=== PATIENT | male | born 1970 | race American Indian/Alaskan Native ===

== ENCOUNTER 2017-05-17 15:46 | Emergency (ER) | payer MEDICARE ==
[2017-05-17 17:35] LABS: Basophils % (Auto) 0.7 % (0.0-1.8); Eosinophils # (Auto) 0.1 K/mm3 (0.0-0.4); Eosinophils % (Auto) 1.1 % (0.0-4.3); Hematocrit 38.3 % (35.5-45.6); Lymphocytes # (Auto) 1.8 K/mm3 (1.2-5.4); Mean Corpuscular HGB Conc 34 % (32-34); Mean Corpuscular Hemoglobin 33 pg (28-32); Mean Corpuscular Volume 98 fl (84-94); Monocytes # (Auto) 0.4 K/mm3 (0.0-0.8); Monocytes % (Auto) 8.1 % (0.0-7.3); Platelet Count 131 K/mm3 (140-440); Red Cell Distribution Width 16.5 % (13.2-15.2)
[2017-05-17] MEDS ORDERED: KEPPRA 1,000 MG/NS 0.75% 100ML 1,000 MG/100 ML BAG IV ONE (17:47)
[2017-05-17 17:50] LABS: BUN/Creatinine Ratio 9; Blood Urea Nitrogen 7 mg/dL (9-20); Calcium 8.4 mg/dL (8.4-10.2); Hemolysis Index 4
--- NOTE | 2017-05-17 17:52 | Emergency Department Report ---
ED General Adult HPI - General Chief complaint: Seizure Stated complaint: POSS SEIZURES Time Seen by Provider: 05/17/17 17:31 Source: patient, EMS (ems notes not available at time of chart dictation), RN notes reviewed Mode of arrival: Stretcher Limitations: No Limitations - History of Present Illness Initial comments: Primary care DrCesar: Marcello Past medical history: Seizure, hypertension This is a 46-year-old male. He is previously known to this provider. Brought to the hospital by EMS for possible seizure. Patient reports having had seizures every day for the past 3 years. He reports compliance with his antiepileptic drug medication. He indicates that he has not missed any of his doses. Patient may have had recent nausea and vomiting he is not sure. The patient indicates central chest pain for months. The pain does not radiate anywhere. There is no shortness of breath, diaphoresis. There is no posterior leg pain or leg swelling, there are no DVT or pulmonary embolus risk factors. The patient indicates chronic anterior thigh pain for months. He cannot indicate exacerbating or relieving factors. He is not homicidal or suicidal. He denies urinary symptoms. -: Gradual, Sudden, week(s), month(s) Location: back, left, right, upper extremity, lower extremity Radiation: non-radiation Quality: other (per hpi) Consistency: other (per hpi) Improves with: other (per hpi) Worsens with: other (per hpi) Associated Symptoms: chest pain, headaches, nausea/vomiting, seizure, other ( neck pain). denies: confusion, cough, diaphoresis, fever/chills, loss of appetite, malaise, rash, shortness of breath, syncope, weakness - Related Data Previous Rx's Medication Instructions Recorded Last Taken Type Aspirin [Adult Low Dose Aspirin EC] 81 mg PO QDAY #30 tablet. 05/17/17 Unknown Rx levETIRAcetam [Keppra TAB] 1,000 mg PO BID #60 tab 05/17/17 Unknown Rx Allergies Allergy/AdvReac Type Severity Reaction Status Date / Time No Known Allergies Allergy Unverified 05/17/17 17:19 ED Review of Systems ROS: Stated complaint: POSS SEIZURES Other details as noted in HPI Comment: All other systems reviewed and negative ED Past Medical Hx - Past Medical History Hx Hypertension: Yes Hx Diabetes: Yes Hx Seizures: Yes - Social History Smoking Status: Former Smoker Substance Use Type: None - Medications Home Medications: Home Medications Medication Instructions Recorded Confirmed Last Taken Type Aspirin [Adult Low Dose Aspirin EC] 81 mg PO QDAY #30 tablet. 05/17/17 Unknown Rx levETIRAcetam [Keppra TAB] 1,000 mg PO BID #60 tab 05/17/17 Unknown Rx ED Physical Exam - General Limitations: No Limitations General appearance: alert, anxious, obese - Head Head exam: Present: atraumatic, normocephalic - Eye Eye exam: Present: normal appearance, EOMI. Absent: nystagmus - ENT ENT exam: Present: normal exam, normal orophraynx, mucous membranes moist, normal external ear exam - Neck Neck exam: Present: normal inspection, full ROM. Absent: tenderness, meningismus - Respiratory Respiratory exam: Present: normal lung sounds bilaterally. Absent: respiratory distress - Cardiovascular Cardiovascular Exam: Present: regular rate, normal rhythm, normal heart sounds. Absent: systolic murmur, diastolic murmur, rubs, gallop - GI/Abdominal GI/Abdominal exam: Present: soft, normal bowel sounds. Absent: distended, tenderness, guarding, rebound, rigid, pulsatile mass - Rectal Rectal exam: Present: deferred - Extremities Exam Extremities exam: Present: normal inspection, full ROM, normal capillary refill , other (the compartments are soft. There is no palpable cord. There is a negative Homans sign. 2+ pulses noted in the bilateral upper and lower extremities). Absent: pedal edema, joint swelling, calf tenderness - Back Exam Back exam: Present: normal inspection, full ROM. Absent: tenderness, CVA tenderness (R), paraspinal tenderness, vertebral tenderness - Neurological Exam Neurological exam: Present: alert, oriented X3, CN II-XII intact, normal gait, other (Extraocular movements intact. Tongue midline. No facial droop. Facial sensation intact to light touch in the V1, V2, V3 distribution bilaterally. 5 and 5 strength in 4 extremities.. Sensation is intact to light touch in 4 extremities.). Absent: motor sensory deficit - Psychiatric Psychiatric exam: Present: normal affect, normal mood - Skin Skin exam: Present: warm, dry, intact, normal color. Absent: rash ED Course Vital Signs 05/17/17 05/17/17 05/17/17 17:02 17:40 17:46 Temperature 97.4 F L Pulse Rate 90 Respiratory 20 Rate Blood Pressure 156/80 O2 Sat by Pulse 100 99 100 Oximetry 05/17/17 05/17/17 05/17/17 18:00 18:16 18:30 Temperature Pulse Rate 95 H 84 102 H Respiratory 20 20 23 Rate Blood Pressure 148/82 149/88 O2 Sat by Pulse 100 99 99 Oximetry 05/17/17 05/17/17 18:46 18:59 Temperature Pulse Rate 84 Respiratory 13 20 Rate Blood Pressure O2 Sat by Pulse 99 100 Oximetry - Reevaluation(s) Reevaluation #1: 05/17/17 20:[address] Saeed Greenberg to follow up on ct head/neck, ua would d/c if negative ED Medical Decision Making - Lab Data Result diagrams: 05/17/17 17:23 05/17/17 17:23 Vital Signs 05/17/17 05/17/17 05/17/17 17:02 17:40 17:46 Temperature 97.4 F L Pulse Rate 90 Respiratory 20 Rate Blood Pressure 156/80 O2 Sat by Pulse 100 99 100 Oximetry 05/17/17 05/17/17 05/17/17 18:00 18:16 18:30 Temperature Pulse Rate 95 H 84 102 H Respiratory 20 20 23 Rate Blood Pressure 148/82 149/88 O2 Sat by Pulse 100 99 99 Oximetry 05/17/17 05/17/17 18:46 18:59 Temperature Pulse Rate 84 Respiratory 13 20 Rate Blood Pressure O2 Sat by Pulse 99 100 Oximetry Lab Results 05/17/17 05/17/17 05/17/17 Range/Units 17:23 17:23 17:58 WBC 5.4 (4.5-11.0) K/mm3 RBC 3.90 (3.65-5.03) M/mm3 Hgb 13.0 (11.8-15.2) gm/dl Hct 38.3 (35.5-45.6) % MCV 98 H (84-94) fl MCH 33 H (28-32) pg MCHC 34 (32-34) % RDW 16.5 H (13.2-15.2) % Plt Count 131 L (140-440) K/mm3 Lymph % (Auto) 33.0 (13.4-35.0) % [place] % (Auto) 8.1 H (0.0-7.3) % Eos % (Auto) 1.1 (0.0-4.3) % Baso % (Auto) 0.7 (0.0-1.8) % Lymph # 1.8 (1.2-5.4) K/mm3 [place] # 0.4 (0.0-0.8) K/mm3 Eos # 0.1 (0.0-0.4) K/mm3 Baso # 0.0 (0.0-0.1) K/mm3 Seg Neutrophils % 57.1 (40.0-70.0) % Seg Neutrophils # 3.1 (1.8-7.7) K/mm3 Sodium 139 (137-145) mmol/L Potassium 3.2 L (3.6-5.0) mmol/L Chloride 101.2 (98-107) mmol/L Carbon Dioxide 29 (22-30) mmol/L Anion Gap 12 mmol/L BUN 7 L (9-20) mg/dL Creatinine 0.8 (0.8-1.5) mg/dL Estimated GFR > 60 ml/min BUN/Creatinine Ratio 9 % Glucose 106 H (75-100) mg/dL Calcium 8.4 (8.4-10.2) mg/dL Total Creatine Kinase 518 H (55-170) units/L Troponin T < 0.010 (0.00-0.029) ng/mL 05/17/17 Range/Units 17:58 WBC (4.5-11.0) K/mm3 RBC (3.65-5.03) M/mm3 Hgb (11.8-15.2) gm/dl Hct (35.5-45.6) % MCV (84-94) fl MCH (28-32) pg MCHC (32-34) % RDW (13.2-15.2) % Plt Count (140-440) K/mm3 Lymph % (Auto) (13.4-35.0) % [place] % (Auto) (0.0-7.3) % Eos % (Auto) (0.0-4.3) % Baso % (Auto) (0.0-1.8) % Lymph # (1.2-5.4) K/mm3 [place] # (0.0-0.8) K/mm3 Eos # (0.0-0.4) K/mm3 Baso # (0.0-0.1) K/mm3 Seg Neutrophils % (40.0-70.0) % Seg Neutrophils # (1.8-7.7) K/mm3 Sodium (137-145) mmol/L Potassium (3.6-5.0) mmol/L Chloride (98-107) mmol/L Carbon Dioxide (22-30) mmol/L Anion Gap mmol/L BUN (9-20) mg/dL Creatinine (0.8-1.5) mg/dL Estimated GFR ml/min BUN/Creatinine Ratio % Glucose (75-100) mg/dL Calcium (8.4-10.2) mg/dL Total Creatine Kinase (55-170) units/L Troponin T < 0.010 (0.00-0.029) ng/mL - EKG Data -: EKG Interpreted by In EKG shows normal: sinus rhythm Rate: normal - EKG Data When compared to previous EKG there are: previous EKG unavailable 05/17/17 19:37 EKG #1 demonstrates normal sinus, 83 bpm, normal intervals, normal axis, not morphologically consistent with ST elevation myocardial infarction. Poor R wave progression is noted in V2. Repeat EKG is unchanged. Persistent abnormality in V2 is noted. - Radiology Data Radiology results: report reviewed, image reviewed X-ray of the chest is negative for acute disease, noncontrast CT scan of the brain and cervical spine are pending. - Medical Decision Making Differential diagnosis, including but not limited to: Seizure, breakthrough seizure, electrolyte derangement, atypical chest pain, GERD, pneumonia, hiatal hernia, pseudoseizure Assessment and plan: 46-year-old male with a primary complaint of seizure. He is afebrile with reassuring vital signs, walks with a steady gait, is clinically sober and has a GCS of 15, with an NIH score of 0. He complains of headache and neck pain" seizures every day." Patient is loaded with 1 g of Keppra. He is found to be somewhat hypokalemic and this will be repleted. Chest pain atypical, and present for months. Troponin negative 2, EKG unchanged 2, low risk by IRASEMA score, low risk by heart score, no pulmonary embolus or DVT risk factors, low risk by well's criteria, perc negative His compartments are soft, he walks with a steady gait. Patient is somewhat of a poor historian, however objectively speaking that her son appeared to be an emergent condition at this time, patient can continue his outpatient antiepileptic drug medication, follow up with outpatient neurology, and outpatient cardiology, he is at low risk for major adverse cardiac event. Critical care attestation.: If time is entered above; I have spent that time in minutes in the direct care of this critically ill patient, excluding procedure time. ED Disposition Clinical Impression: History of seizure, Chest pain Is pt being admited?: No Does the pt Need Aspirin: No Condition: Good Instructions: Chest Pain (ED) Additional Instructions: Do not drive or operate motor vehicles for the next 6 months. Take the seizure medication as directed. Follow up with a primary care doctor or neurology specialist within the next 2 weeks. Take the aspirin medication as directed, and follow-up with a primary care doctor or dirt supervisor for your chest pain within the next week. Return to the ER right away with new pain, worsened pain , migration of pain, weakness, numbness, confusion, recurrent seizure/convulsion , projectile vomiting, inability to tolerate liquid feeds. Prescriptions: Aspirin [Adult Low Dose Aspirin EC] 81 mg PO QDAY #30 tablet. levETIRAcetam [Keppra TAB] 1,000 mg PO BID #60 tab Referrals: ARMEN LEGGETT MD [Staff Physician] - 3-5 Days GIAN HERRON MD [Referring] - 3-5 Days [facility] [Provider Group] - 3-5 Days [facility] [Provider Group] - 3-5 Days
--- NOTE | 2017-05-17 19:32 | XRay Report ---
FINAL REPORT EXAM: XR CHEST 1V AP HISTORY: chest pain TECHNIQUE: upright single view chest PRIORS: None. FINDINGS: Cardiac and mediastinal contours are unremarkable. No focal pulmonary infiltrate is identified. No pleural fluid collection seen. Pulmonary vasculature is unremarkable. IMPRESSION: Negative single-view chest
[2017-05-17] MEDS ORDERED: K-DUR PO ONE (19:36)
[2017-05-17] MEDS ORDERED: MAG-OX PO STA (19:40)
[2017-05-17 20:22] LABS: Bilirubin,Urine NEG (Negative); Blood,Urine NEG (Negative); Color,Urine Straw (Yellow); Mucus,Urine FEW /HPF; Protein,Urine <15 mg/dL mg/dL (Negative); Urobilinogen,Urine < 2.0 mg/dL (<2.0)
--- NOTE | 2017-05-17 20:25 | Cat Scan Report ---
FINAL REPORT EXAM: CT HEAD/BRAIN WO CON HISTORY: sz, head and neck pain TECHNIQUE: CT head without contrast PRIORS: None. FINDINGS: No acute intra-axial or extra-axial hemorrhage is identified. There is no evidence of midline shift or mass effect. The ventricles and sulci are within normal limits. Moore-white matter differentiation is intact. No acute parenchymal abnormalities seen. Bony calvarium is grossly intact. Visualized portions of the mastoids and paranasal sinuses are unremarkable. IMPRESSION: Negative CT head
--- NOTE | 2017-05-17 20:27 | Cat Scan Report ---
FINAL REPORT EXAM: CT CERVICAL SPINE WO CON HISTORY: sz, head and neck pain TECHNIQUE: CT cervical spine with reconstructions PRIORS: None. FINDINGS: Vertebral bodies demonstrate normal height and alignment. The disk spaces are within normal limits. The facet joints demonstrate normal alignment. The spinous processes are intact. Craniocervical junction is unremarkable. C1 and C2 are intact. IMPRESSION: Negative CT cervical spine. No acute abnormality seen.
[2017-05-17 20:28] LABS: Amphetamine Screen,Urine PRESUMPTIVE NEGATIVE; Benzodiazepines Screen,Urine PRESUMPTIVE NEGATIVE; Cannabinoid Screen,Urine PRESUMPTIVE NEGATIVE; Cocaine Screen,Urine PRESUMPTIVE NEGATIVE; Methadone Screen,Urine PRESUMPTIVE NEGATIVE; Opiate Screen,Urine PRESUMPTIVE NEGATIVE
[2017-05-17 20:46] VITALS: BP 107/77
== END 2017-05-17 22:45 | disposition home or self-care (01) ==
LOC: ED 15:46
DX: R07.89 Other chest pain (principal); R51 Headache; I10 Essential (primary) hypertension; E11.9 Type 2 diabetes mellitus without complications; Z87.891 Personal history of nicotine dependence
CPT/HCPCS: 36415; 70450; 71045; 72125; 80048; 80307; 81001; 82550; 84484; 85025; 93005; 93010; 96374; 99285; J1953

== ENCOUNTER 2017-05-18 10:37 | Emergency (ER) | payer MEDICARE ==
[2017-05-18] MEDS ORDERED: KEPPRA 1,000 MG/NS 0.75% 100ML 1,000 MG/100 ML BAG IV ONE (13:31)
--- NOTE | 2017-05-18 13:35 | Emergency Department Report ---
Blank Doc - Documentation Documentation: Patient is a 46-year-old black male who is presenting status post seizure. Patient states he had 3 seizures in the last 24 hours. Patient states he is still been taking his Her although he is running out. Patient denies any trauma fever neck stiffness headache at this time. Patient removed the treatment area to be loaded with Keppra
[2017-05-18 14:02] LABS: Basophils # (Auto) 0.1 K/mm3 (0.0-0.1); Basophils % (Auto) 0.7 % (0.0-1.8); Eosinophils # (Auto) 0.1 K/mm3 (0.0-0.4); Eosinophils % (Auto) 1.5 % (0.0-4.3); Hematocrit 41.7 % (35.5-45.6); Hemoglobin 13.9 gm/dl (11.8-15.2); Lymphocytes # (Auto) 2.7 K/mm3 (1.2-5.4); Lymphocytes % (Auto) 33.3 % (13.4-35.0); Mean Corpuscular HGB Conc 33 % (32-34); Mean Corpuscular Hemoglobin 33 pg (28-32); Mean Corpuscular Volume 99 fl (84-94); Monocytes # (Auto) 0.7 K/mm3 (0.0-0.8); Monocytes % (Auto) 8.2 % (0.0-7.3); Platelet Count 164 K/mm3 (140-440); Red Cell Distribution Width 16.7 % (13.2-15.2)
[2017-05-18 14:22] LABS: BUN/Creatinine Ratio 10; Blood Urea Nitrogen 9 mg/dL (9-20); Calcium 9.1 mg/dL (8.4-10.2); Hemolysis Index 74
[2017-05-18 15:24] VITALS: BP 160/95
[2017-05-18] MEDS ORDERED: TORADOL IV ONE (16:04)
--- NOTE | 2017-05-18 16:15 | Emergency Department Report ---
ED Seizure HPI - General Chief Complaint: Weakness Stated Complaint: SYNCOPE Time Seen by Provider: 05/18/17 13:21 Source: patient Mode of arrival: Wheelchair Limitations: No Limitations - History of Present Illness Initial Comments: 46-year-old male the past medical history seizures, diabetes, and hypertension presents to the hospital complaints of generalized weakness, body pain, and seizure. Patient was seen here yesterday for complaints similar complaint. She received a negative CT head, C-spine, and chest x-ray. No signs of rhabdomyolysis patient had mild hypokalemia and was treated with by mouth potassium, po mag, and IV Keppra 1 g. Patient states he had a seizure despite medication compliance. Patient was discharged last night but fell asleep in the lobby and missed his ride. Patient went to check back in stating he feels weak all over and then had another seizure once and the ACC area. Patient was then subsequently transferred to the acute side of the ED and Keppra 1 g was initiated. Patient continues complain of generalized bodyaches and generalized weakness. Neurologsit: none - Related Data Previous Rx's Medication Instructions Recorded Last Taken Type Aspirin [Adult Low Dose Aspirin EC] 81 mg PO QDAY #30 tablet. 05/17/17 Unknown Rx levETIRAcetam [Keppra TAB] 1,000 mg PO BID #60 tab 05/17/17 Unknown Rx Allergies Allergy/AdvReac Type Severity Reaction Status Date / Time No Known Allergies Allergy Unverified 05/17/17 17:19 ED Review of Systems ROS: Stated complaint: SYNCOPE Other details as noted in HPI Comment: All other systems reviewed and negative Other: Constitutional: No fevers chills Eyes: No eye pain visual changes ENT: No ear pain or throat pain Neck: Denies pain Respiratory: Denies cough wheezing shortness of breath Cardiovascular: Denies chest pain, palpitations GI: Denies abdominal pain. mild intermittent diarrhea reported : Denies dysuria Musculoskeletal: Denies back pain, joint swelling Skin: Denies rash, lesions, erythema Neurologic: Denies headache, numbness, weakness Psychiatric: Denies suicidal ideation, hallucinations ED Past Medical Hx - Past Medical History Previous Medical History?: Yes Hx Hypertension: Yes Hx Diabetes: Yes Hx Seizures: Yes - Social History Smoking Status: Never Smoker Substance Use Type: None - Medications Home Medications: Home Medications Medication Instructions Recorded Confirmed Last Taken Type Aspirin [Adult Low Dose Aspirin EC] 81 mg PO QDAY #30 tablet. 05/17/17 Unknown Rx levETIRAcetam [Keppra TAB] 1,000 mg PO BID #60 tab 05/17/17 Unknown Rx ED Physical Exam - General Limitations: No Limitations - Other Other exam information: General: No limitations, patient is alert in no acute distress Head exam: Atraumatic, normocephalic Eyes exam: Normal appearance, pupils equal reactive to light, extraocular movements intact ENT: Moist mucous membrane, right lateral tongue superficial abrasion Neck exam: Normal inspection, full range of motion, no meningismus nontender Respiratory exam: Clear to auscultation bilateral, no wheezes, rales, crackles Cardiovascular: Normal rate and rhythm, normal heart sounds Abdomen: Soft, nondistended, and nontender, with normal bowel sounds, no rebound, or guarding Extremity: Full range of motion normal inspection no deformity Back: Normal Inspection, full range of motion, no tenderness Neurologic: Alert, oriented x3, cranial nerves intact, no motor or sensory deficit Psychiatric: normal affect, normal mood Skin: Warm, dry, intact ED Course Vital Signs 05/18/17 05/18/17 05/18/17 10:42 13:49 14:00 Temperature 98.3 F Pulse Rate 72 Respiratory 16 Rate Blood Pressure 157/82 196/103 145/100 O2 Sat by Pulse 98 98 Oximetry 05/18/17 05/18/17 05/18/17 14:15 14:30 14:45 Temperature Pulse Rate 78 79 80 Respiratory 14 17 13 Rate Blood Pressure 160/92 162/92 144/93 O2 Sat by Pulse 97 95 96 Oximetry 05/18/17 05/18/17 15:01 15:15 Temperature Pulse Rate 86 83 Respiratory 11 L 12 Rate Blood Pressure 156/96 160/95 O2 Sat by Pulse 95 96 Oximetry ED Medical Decision Making - Lab Data Result diagrams: 05/18/17 13:48 05/18/17 13:48 Lab Results 05/18/17 05/18/17 05/18/17 Range/Units 13:48 13:48 13:48 WBC 8.1 (4.5-11.0) K/mm3 RBC 4.20 (3.65-5.03) M/mm3 Hgb 13.9 (11.8-15.2) gm/dl Hct 41.7 (35.5-45.6) % MCV 99 H (84-94) fl MCH 33 H (28-32) pg MCHC 33 (32-34) % RDW 16.7 H (13.2-15.2) % Plt Count 164 (140-440) K/mm3 Lymph % (Auto) 33.3 (13.4-35.0) % [place] % (Auto) 8.2 H (0.0-7.3) % Eos % (Auto) 1.5 (0.0-4.3) % Baso % (Auto) 0.7 (0.0-1.8) % Lymph # 2.7 (1.2-5.4) K/mm3 [place] # 0.7 (0.0-0.8) K/mm3 Eos # 0.1 (0.0-0.4) K/mm3 Baso # 0.1 (0.0-0.1) K/mm3 Seg Neutrophils % 56.3 (40.0-70.0) % Seg Neutrophils # 4.5 (1.8-7.7) K/mm3 Sodium 138 (137-145) mmol/L Potassium 3.8 (3.6-5.0) mmol/L Chloride 97.8 L (98-107) mmol/L Carbon Dioxide 27 (22-30) mmol/L Anion Gap 17 mmol/L BUN 9 (9-20) mg/dL Creatinine 0.9 (0.8-1.5) mg/dL Estimated GFR > 60 ml/min BUN/Creatinine Ratio 10 % Glucose 94 (75-100) mg/dL Calcium 9.1 (8.4-10.2) mg/dL Magnesium 1.90 (1.7-2.3) mg/dL - Medical Decision Making Patient likely had a repeat seizure in the ED due to lack of seizure medication. That dose of Keppra was in the ED yesterday evening and patient did not have any seizure medication this morning. Patient received Keppra and no further seizure activity. Hypokalemia has improved He continues complain of generalized body aches but no acute physical or lab abnormality identified. Vitals stable. Patient be discharged to continue the Keppra that was prescribed on his visit last night - Differential Diagnosis break through seizure, medication noncompliance, initially abnormality Critical Care Time: No Critical care attestation.: If time is entered above; I have spent that time in minutes in the direct care of this critically ill patient, excluding procedure time. ED Disposition Clinical Impression: Seizure Disposition: DC-01 TO HOME OR SELFCARE Is pt being admited?: No Does the pt Need Aspirin: No Condition: Stable Instructions: Epilepsy (ED) Additional Instructions: Follow-up and either neurologist provided with a neurologist of your choice. Take the medication as prescribed. Referrals: TRICIA MORENO MD [Staff Physician] - 3-5 Days ARMEN LEGGETT MD [Staff Physician] - 3-5 Days Time of Disposition: 16:33
== END 2017-05-18 17:18 | disposition home or self-care (01) ==
LOC: ED 10:37
DX: R56.9 Unspecified convulsions (principal); R53.1 Weakness; M79.1 Myalgia; I10 Essential (primary) hypertension; E11.9 Type 2 diabetes mellitus without complications
CPT/HCPCS: 36415; 80048; 83735; 85025; 96374; 96375; 99283; J1885; J1953

== ENCOUNTER 2017-06-15 15:58 | Emergency (ER) | payer MEDICARE ==
[2017-06-15 16:10] VITALS: BP 156/93
[2017-06-15] MEDS ORDERED: KEPPRA PO ONE (19:28)
[2017-06-15] MEDS ORDERED: ANTIVERT PO ONE (19:28)
--- NOTE | 2017-06-15 19:31 | Emergency Department Report ---
ED General Adult HPI - General Chief complaint: Dizziness Stated complaint: BG/BP/SEZUIRES Time Seen by Provider: 06/15/17 19:27 Source: patient Mode of arrival: Ambulatory Limitations: No Limitations - History of Present Illness Initial comments: Patient is a 46-year-old black male who is presenting with "seizure". Patient states that he had 3 episodes today that he is considering a seizure. Last wet his symptoms aren't says he gets really dizzy and sometimes his blood in his mouth. Patient was asked open his mouth it's has not bitten his tongue he states that his teeth are loose. Patient is a poor historian. Patient has a prescription from last month was written here for Her however he states he is not taking anything for seizures not seen a neurologist or formally diagnosed with seizures. Patient also states that he feels like the blood is rushing to his head and his blood pressures extremely high. Patient states he's never prescribed any blood pressure medicines either. Patient denies any nausea vomiting, headache and fevers chills abdominal pain at this time. - Related Data Previous Rx's Medication Instructions Recorded Last Taken Type Aspirin [Adult Low Dose Aspirin EC] 81 mg PO QDAY #30 tablet. 05/17/17 Unknown Rx Amlodipine Besylate [Norvasc] 5 mg PO DAILY #30 tablet 06/15/17 Unknown Rx levETIRAcetam [Keppra TAB] 500 mg PO BID #60 tab 06/15/17 Unknown Rx Allergies Allergy/AdvReac Type Severity Reaction Status Date / Time No Known Allergies Allergy Verified 06/15/17 16:04 ED Review of Systems ROS: Stated complaint: BG/BP/SEZUIRES Other details as noted in HPI Comment: All other systems reviewed and negative ED Past Medical Hx - Past Medical History Hx Hypertension: Yes Hx Diabetes: Yes Hx Seizures: Yes - Social History Smoking Status: Never Smoker - Medications Home Medications: Home Medications Medication Instructions Recorded Confirmed Last Taken Type Aspirin [Adult Low Dose Aspirin EC] 81 mg PO QDAY #30 tablet. 05/17/17 Unknown Rx Amlodipine Besylate [Norvasc] 5 mg PO DAILY #30 tablet 06/15/17 Unknown Rx levETIRAcetam [Keppra TAB] 500 mg PO BID #60 tab 06/15/17 Unknown Rx ED Physical Exam - General Limitations: No Limitations General appearance: alert, in no apparent distress - Head Head exam: Present: atraumatic, normocephalic - Eye Eye exam: Present: normal appearance - ENT ENT exam: Present: mucous membranes moist - Neck Neck exam: Present: normal inspection - Respiratory Respiratory exam: Present: normal lung sounds bilaterally. Absent: respiratory distress - Cardiovascular Cardiovascular Exam: Present: regular rate, normal rhythm. Absent: systolic murmur, diastolic murmur, rubs, gallop - GI/Abdominal GI/Abdominal exam: Present: soft, normal bowel sounds - Rectal Rectal exam: Present: deferred - Extremities Exam Extremities exam: Present: normal inspection - Back Exam Back exam: Present: normal inspection - Neurological Exam Neurological exam: Present: alert, oriented X3 - Psychiatric Psychiatric exam: Present: normal affect, normal mood - Skin Skin exam: Present: warm, dry, intact, normal color. Absent: rash ED Course Vital Signs 06/15/17 16:04 Temperature 97.8 F Pulse Rate 84 Respiratory 18 Rate Blood Pressure 156/93 O2 Sat by Pulse 98 Oximetry ED Medical Decision Making - Lab Data Result diagrams: 06/15/17 19:45 06/15/17 19:45 - Medical Decision Making Patient is a 46-year-old black male presented with possible seizures. No seizure was witnessed here but he has Had a Prescription past for Her Which Ascending Aorta. Patient Is a Poor Historian However Patient Was Loaded with a Gram Will Be Discharged Home with Prescription with Follow with Neuro. Patient Also Has a Slightly Elevated Blood Pressure and Restarted on Blood Pressure Medicines As Well. Critical care attestation.: If time is entered above; I have spent that time in minutes in the direct care of this critically ill patient, excluding procedure time. ED Disposition Clinical Impression: Seizure, Hypertension Disposition: DC-01 TO HOME OR SELFCARE Is pt being admited?: No Does the pt Need Aspirin: No Condition: Stable Instructions: Hypertension (ED) Prescriptions: Amlodipine Besylate [Norvasc] 5 mg PO DAILY #30 tablet levETIRAcetam [Keppra TAB] 500 mg PO BID #60 tab Referrals: BERTHA KOROMA MD [Primary Care Provider] - 3-5 Days JASMYNE CUEVA MD [Referring] - 3-5 Days
[2017-06-15 20:06] LABS: Mean Corpuscular HGB Conc 34 % (32-34); Mean Corpuscular Hemoglobin 34 pg (28-32); Mean Corpuscular Volume 100 fl (84-94); Red Blood Count 4.11 M/mm3 (3.65-5.03); Red Cell Distribution Width 15.6 % (13.2-15.2)
[2017-06-15 20:21] LABS: Platelet Count 168 K/mm3 (140-440)
[2017-06-15 20:23] LABS: BUN/Creatinine Ratio 10; Blood Urea Nitrogen 9 mg/dL (9-20); Calcium 8.7 mg/dL (8.4-10.2); Hemolysis Index 133
[2017-06-15 21:10] LABS: Total Cells Counted 100
[2017-06-15 21:11] LABS: Basophils % (Manual) 0 % (0.0-1.8)
[2017-06-15 21:12] LABS: Target Cells Few
[2017-06-15 21:13] LABS: Platelet Estimate Consistent w Auto
[2017-06-16] MEDS ORDERED: ANTIVERT ONE (00:52)
[2017-06-16] MEDS ORDERED: KEPPRA PO ONE ×2 (00:53→00:54)
== END 2017-06-15 21:35 | disposition home or self-care (01) ==
LOC: ED 15:58
DX: I10 Essential (primary) hypertension (principal); E11.9 Type 2 diabetes mellitus without complications; Z79.82 Long term (current) use of aspirin
CPT/HCPCS: 36415; 80048; 82962; 85007; 85025; 99283

== ENCOUNTER 2017-06-29 13:39 | Emergency (ER) | payer MEDICARE ==
[2017-06-29 15:32] LABS: Hemoglobin 12.7 gm/dl (11.8-15.2); Mean Corpuscular HGB Conc 34 % (32-34); Mean Corpuscular Hemoglobin 34 pg (28-32); Mean Corpuscular Volume 100 fl (84-94); Platelet Count 158 K/mm3 (140-440); Red Blood Count 3.72 M/mm3 (3.65-5.03); Red Cell Distribution Width 15.3 % (13.2-15.2)
[2017-06-29 15:46] LABS: BUN/Creatinine Ratio 16; Blood Urea Nitrogen 14 mg/dL (9-20); Calcium 9.4 mg/dL (8.4-10.2); Hemolysis Index 17
[2017-06-29 16:03] LABS: Bilirubin,Urine NEG (Negative); Blood,Urine NEG (Negative); Color,Urine Yellow (Yellow); Protein,Urine <15 mg/dL mg/dL (Negative); Urobilinogen,Urine < 2.0 mg/dL (<2.0); WBC,Urine < 1.0 /HPF (0.0-6.0)
[2017-06-29] MEDS ORDERED: KEPPRA 1,000 MG/NS 0.75% 100ML 1,000 MG/100 ML BAG IV ONE (16:09)
[2017-06-29 16:46] LABS: Alanine Aminotransferase 23 units/L (7-56); Albumin 3.8 g/dL (3.9-5); Lipase 33 units/L (13-60)
[2017-06-29 16:48] LABS: Bilirubin,Direct < 0.2 mg/dL (0-0.2)
[2017-06-29] MEDS ORDERED: ZOFRAN IV ONE (17:43)
[2017-06-29] MEDS ORDERED: NACL 0.9% 1000 ML 1,000 ML IV ONE (17:43)
[2017-06-29] MEDS ORDERED: TORADOL IV ONE (17:43)
[2017-06-29] MEDS ORDERED: NACL 0.9% 500 ML 500 ML IV ONE (17:44)
--- NOTE | 2017-06-29 18:08 | Emergency Department Report ---
HPI - General Chief Complaint: Seizure Time Seen by Provider: 06/29/17 15:58 - HPI HPI: The patient is a 47-year-old male presents for evaluation of abdominal pain a seizure. The patient reports abdominal pain since last night, crampy in quality , constant since onset, moderate severity, exacerbated with retching. He also reports nausea and multiple episodes of nonbilious, nonbloody emesis. He shares that he also experienced a seizure this morning. He states compliance with antiseizure medication regimen. The patient denies fever, head injury, headache, neck pain, neck stiffness, paresthesias, facial drooping, slurred speech, chest pain, dyspnea, cough, hematemesis, diarrhea, blood in the stool, urine or bowel incontinence or retention, or other focal neurological deficit. ED Past Medical Hx - Past Medical History Previous Medical History?: Yes Hx Hypertension: Yes Hx Diabetes: Yes Hx Seizures: Yes - Surgical History Past Surgical History?: No - Social History Smoking Status: Never Smoker Substance Use Type: Prescribed - Medications Home Medications: Home Medications Medication Instructions Recorded Confirmed Last Taken Type Aspirin [Adult Low Dose Aspirin EC] 81 mg PO QDAY #30 tablet. 05/17/17 Unknown Rx Amlodipine Besylate [Norvasc] 5 mg PO DAILY #30 tablet 06/15/17 Unknown Rx levETIRAcetam [Keppra TAB] 500 mg PO BID #60 tab 06/15/17 Unknown Rx Ibuprofen [Motrin] 800 mg PO Q8HR PRN #12 tablet 06/29/17 Unknown Rx Ondansetron [Zofran TAB] 4 mg PO Q8HR PRN #15 tablet 06/29/17 Unknown Rx ED Review of Systems ROS: Stated complaint: DIZZY Other details as noted in HPI Physical Exam - Physical Exam Vital Signs: Vital Signs 06/29/17 06/29/17 06/29/17 14:31 16:06 16:09 Temperature 98.2 F 97.9 F Pulse Rate 78 79 Respiratory 20 18 18 Rate Blood Pressure 138/80 Blood Pressure 153/96 [Left] O2 Sat by Pulse 98 98 98 Oximetry Physical Exam: General: well-nourished, well-developed, no acute distress Head: Normocephalic, atraumatic Eyes: normal sclera ENT: Mucous membranes are pale and dry Neck: trachea midline, neck supple, No neck stiffness, no cervical adenopathy Respiratory: Breath sounds equal bilaterally, no wheezing, rales, or rhonchi Cardio: S1 and S2 present, no murmurs, rubs, gallops, capillary refill is delayed Abdomen: Normoactive bowel sounds, soft abdomen, epigastric and periumbilical tenderness to palpation present, no rigidity, no guarding or rebound tenderness Musc: No pitting edema Skin: No rash Neuro: no facial drooping, normal speech Psych: Normal affect ED Course Vital Signs 06/29/17 06/29/17 06/29/17 14:31 16:06 16:09 Temperature 98.2 F 97.9 F Pulse Rate 78 79 Respiratory 20 18 18 Rate Blood Pressure 138/80 Blood Pressure 153/96 [Left] O2 Sat by Pulse 98 98 98 Oximetry ED Medical Decision Making - Lab Data Result diagrams: 06/29/17 14:59 06/29/17 14:59 - Medical Decision Making The patient was seen and examined by myself. The patient is placed on a nurse monitoring and continuous pulse ox. On initial evaluation, the patient was found to be in no distress. Evaluation orders are placed. IV access is established and the patient is given 1 L normal saline fluid bolus and Zofran for nausea, and IV analgesic for pain. The patient is given IV Keppra for treatment of his seizure. Lab results were non-concerning including WBC, hemoglobin, hematocrit, electrolytes, renal function, LFTs, lipase, and urinalysis. The patient was reevaluated and reported that their symptoms were markedly improved. The patient is stable for discharge with outpatient follow- up. The patient is given follow-up and return instructions. The patient expressed understanding and agreed with the plan. The patient is discharged in stable condition. Critical care attestation.: If time is entered above; I have spent that time in minutes in the direct care of this critically ill patient, excluding procedure time. ED Disposition Clinical Impression: Seizure disorder, Nausea and vomiting in adult, Dehydration, mild, Abdominal pain, acute, epigastric Disposition: -01 TO HOME OR SELFCARE Is pt being admited?: No Does the pt Need Aspirin: No Condition: Stable Instructions: Gastroenteritis (ED), Epilepsy (ED), Gastroesophageal Reflux Disease (ED), Abdominal Pain (ED) Prescriptions: Ibuprofen [Motrin] 800 mg PO Q8HR PRN #12 tablet PRN Reason: Pain Ondansetron [Zofran TAB] 4 mg PO Q8HR PRN #15 tablet PRN Reason: Nausea Referrals: PRIMARY CARE,MD [Primary Care Provider] - 3-5 Days Time of Disposition: 18:05
[2017-06-29 18:35] VITALS: BP 151/88
== END 2017-06-29 18:34 | disposition home or self-care (01) ==
LOC: ED 13:39
DX: G40.909 Epilepsy, unspecified, not intractable, without status epilepticus (principal); E86.0 Dehydration; I10 Essential (primary) hypertension; Z79.82 Long term (current) use of aspirin
CPT/HCPCS: 36415; 80048; 80074; 81001; 82962; 83690; 85027; 96365; 96375; 99283; J1885; J1953; J2405

== ENCOUNTER 2017-07-13 14:08 | Emergency (ER) | payer MEDICARE ==
[2017-07-13 14:30] VITALS: BP 167/98
[2017-07-13 15:13] LABS: Hematocrit 38.1 % (35.5-45.6); Hemoglobin 12.6 gm/dl (11.8-15.2); Mean Corpuscular HGB Conc 33 % (32-34); Mean Corpuscular Hemoglobin 33 pg (28-32); Mean Corpuscular Volume 100 fl (84-94); Platelet Count 185 K/mm3 (140-440); Red Blood Count 3.79 M/mm3 (3.65-5.03); Red Cell Distribution Width 14.4 % (13.2-15.2)
[2017-07-13] MEDS ORDERED: TYLENOL PO ONE (15:39)
--- NOTE | 2017-07-13 15:40 | Emergency Department Report ---
ED General Adult HPI - General Chief complaint: Seizure Stated complaint: SEIZURES Time Seen by Provider: 07/13/17 14:45 Source: patient, EMS Mode of arrival: Stretcher Limitations: No Limitations - History of Present Illness Initial comments: 47-year-old male with frequent visits to ED for seizures lives at a personal long-term was sent to ED for seizure. He arrives awake and alert he states he has been taking his Keppra he denies other complaints except some right-sided chest wall pain that he thinks he bruised after the seizure. However he denied any fall denying neck pain there and abdominal pain back pain. Denies any weakness numbness or tingling no focal complaints no headache no photophobia no rash no fever as a history of diabetes and hypertension and lives in a personal long-term, states he has been having int sz but unclear if taking his cardiazem -: Gradual, unknown Location: chest Quality: burning Associated Symptoms: denies other symptoms, other (chest wall pain to the left chest wall after he fell after seizure denies head injury denies neck pain denies other focal complaints no back pain no abdominal pain, pelvic pain. No extremity complaints no headache). denies: headaches, malaise, nausea/vomiting , rash, seizure - Related Data Previous Rx's Medication Instructions Recorded Last Taken Type Aspirin [Adult Low Dose Aspirin EC] 81 mg PO QDAY #30 tablet. 05/17/17 Unknown Rx Amlodipine Besylate [Norvasc] 5 mg PO DAILY #30 tablet 06/15/17 Unknown Rx levETIRAcetam [Keppra TAB] 500 mg PO BID #60 tab 06/15/17 Unknown Rx Ibuprofen [Motrin] 800 mg PO Q8HR PRN #12 tablet 06/29/17 Unknown Rx Ondansetron [Zofran TAB] 4 mg PO Q8HR PRN #15 tablet 06/29/17 Unknown Rx Allergies Allergy/AdvReac Type Severity Reaction Status Date / Time No Known Allergies Allergy Verified 06/15/17 16:04 ED Review of Systems ROS: Stated complaint: SEIZURES Other details as noted in HPI Comment: All other systems reviewed and negative Constitutional: denies: diaphoresis, fever, malaise ENT: denies: epistaxis Respiratory: denies: cough, orthopnea, shortness of breath, SOB with exertion, SOB at rest, stridor Cardiovascular: other (chest wall pain in the right chest) Gastrointestinal: denies: abdominal pain, nausea, vomiting, diarrhea, constipation, hematemesis, melena, hematochezia Musculoskeletal: myalgia. denies: joint swelling, arthralgia Neurological: denies: headache, weakness, numbness, paresthesias, confusion, abnormal gait, vertigo Hematological/Lymphatic: denies: easy bruising, swollen glands ED Past Medical Hx - Past Medical History Hx Hypertension: Yes Hx Diabetes: Yes Hx Seizures: Yes - Surgical History Past Surgical History?: No - Social History Smoking Status: Never Smoker Substance Use Type: None - Medications Home Medications: Home Medications Medication Instructions Recorded Confirmed Last Taken Type Aspirin [Adult Low Dose Aspirin EC] 81 mg PO QDAY #30 tablet. 05/17/17 Unknown Rx Amlodipine Besylate [Norvasc] 5 mg PO DAILY #30 tablet 06/15/17 Unknown Rx levETIRAcetam [Keppra TAB] 500 mg PO BID #60 tab 06/15/17 Unknown Rx Ibuprofen [Motrin] 800 mg PO Q8HR PRN #12 tablet 06/29/17 Unknown Rx Ondansetron [Zofran TAB] 4 mg PO Q8HR PRN #15 tablet 06/29/17 Unknown Rx ED Physical Exam - General Limitations: No Limitations General appearance: alert, anxious, in distress, obese - Head Head exam: Present: atraumatic, normocephalic - Eye Eye exam: Present: normal appearance, PERRL, EOMI - ENT ENT exam: Present: normal exam, normal orophraynx - Neck Neck exam: Present: normal inspection. Absent: tenderness, meningismus - Respiratory Respiratory exam: Present: normal lung sounds bilaterally, chest wall tenderness , other (os is equal bilaterally no exertional chest pain or shortness of breath ). Absent: respiratory distress, wheezes, rales, rhonchi, stridor, accessory muscle use, decreased breath sounds, prolonged expiratory - Cardiovascular Cardiovascular Exam: Present: regular rate, normal rhythm, normal heart sounds. Absent: rubs - GI/Abdominal GI/Abdominal exam: Present: soft. Absent: distended, tenderness, guarding, rebound, rigid, mass, pulsatile mass - Extremities Exam Extremities exam: Present: normal inspection, normal capillary refill. Absent: pedal edema, joint swelling, calf tenderness - Neurological Exam Neurological exam: Present: alert, oriented X3, CN II-XII intact. Absent: motor sensory deficit ED Course Vital Signs 07/13/17 07/13/17 14:18 14:28 Temperature 98.4 F Pulse Rate 84 82 Respiratory 23 15 Rate Blood Pressure 167/98 O2 Sat by Pulse 99 Oximetry ED Medical Decision Making - Lab Data Result diagrams: 07/13/17 14:49 07/13/17 14:47 - Radiology Data Radiology results: report reviewed - Medical Decision Making Patient was low He did have some Ativan as well. His chest x-ray is negative he has no evidence of cardiopulmonary process. He is stable for outpatient follow-up the chest pain does appear to be related to bruising from his follow- up pulses are bilaterally his usual support ACS reproducible right-sided chest wall pain for return to the home Critical care attestation.: If time is entered above; I have spent that time in minutes in the direct care of this critically ill patient, excluding procedure time. ED Disposition Clinical Impression: Chest wall injury, Seizure Disposition: DC-01 TO HOME OR SELFCARE Is pt being admited?: No Condition: Stable Instructions: Recurrent Seizures Adult (ED) Additional Instructions: Tylenol as needed [id number] C regular doctor in 2 days return if worse Referrals: PRIMARY CARE, [Primary Care Provider] - 3-5 Days BERTHA KOROMA MD [Staff Physician] - 3-5 Days Time of Disposition: 18:34
[2017-07-13 15:49] LABS: BUN/Creatinine Ratio 7; Blood Urea Nitrogen 7 mg/dL (9-20); Hemolysis Index 17
[2017-07-13] MEDS ORDERED: ATIVAN ONE (16:01)
--- NOTE | 2017-07-13 16:11 | XRay Report ---
FINAL REPORT PROCEDURE: XR CHEST 1V AP TECHNIQUE: Chest radiograph anteroposterior view. CPT 66636 HISTORY: sz/cw pain COMPARISON: Prior chest x-ray 05/17/2017 FINDINGS: Heart: Magnified due to projection appears to be normal size.. Mediastinum/Vessels: Normal. Lungs/Pleural space: Mildly hypoventilated. There is some crowding of the bronchovascular markings in the bases. No infiltrates masses effusions or pneumothorax visualized.. Bony thorax: No acute osseous abnormality. Life support devices: None. IMPRESSION: Lungs mildly hypoventilated. No acute abnormality is seen per.
[2017-07-13] MEDS ORDERED: KEPPRA 1,000 MG/NS 0.75% 100ML 1,000 MG/100 ML BAG IV ONE ×2 (16:16→16:26)
[2017-07-13] MEDS ORDERED: ATIVAN IV ONE (16:26)
--- NOTE | 2017-07-13 16:32 | Cat Scan Report ---
FINAL REPORT PROCEDURE: CT HEAD/BRAIN WO CON TECHNIQUE: Computerized tomography of the head was performed without contrast material. HISTORY: Seizure COMPARISON: Prior CT scan of the brain 05/17/2017 FINDINGS: Brain: Brain density appears normal. No evidence of intracranial hemorrhage. No parenchymal hemorrhage, mass lesions or mass effect are seen. No abnormal extraxial fluid collects or masses are seen. Ventricles: Ventricles are normal size and are midline. Bone Windows: No evidence of skull fracture. Paranasal sinuses: There mild to moderate mucosal thickening in the right maxillary sinus. Patchy mucosal thickening seen in a few of the ethmoid air cells. There is also mild patchy mucosal thickening in the left frontal sinus. Mastoid air cells: Clear IMPRESSION: Negative unenhanced CT scan of the brain. No acute intracranial abnormalities are seen. Mild paranasal sinus disease as described
[2017-07-13] MEDS ORDERED: KEPPRA 500 MG/NS 0.82% 100 ML 500 MG/100 ML BAG IV ONE (16:39)
[2017-07-13] MEDS ORDERED: ATIVAN PO ONE (18:25)
== END 2017-07-13 22:31 | disposition home or self-care (01) ==
LOC: ED 14:08
DX: S29.9XXA Unspecified injury of thorax, initial encounter (principal); I10 Essential (primary) hypertension; E11.9 Type 2 diabetes mellitus without complications; W18.30XA Fall on same level, unspecified, initial encounter; Y93.89 Activity, other specified; Y92.89 Other specified places as the place of occurrence of the external cause; Y99.8 Other external cause status
CPT/HCPCS: 36415; 70450; 71045; 80048; 80177; 82962; 83735; 85027; 96365; 96375; 99285; G0480; J1953; J2060; 80320

== ENCOUNTER 2017-07-14 18:00 | Emergency (ER) | payer MEDICARE ==
[2017-07-14] MEDS ORDERED: ATIVAN IM ONE (22:26)
--- NOTE | 2017-07-14 22:26 | Emergency Department Report ---
ED Seizure HPI - General Chief Complaint: Seizure Stated Complaint: SEIZURE Time Seen by Provider: 07/14/17 22:04 Source: patient Mode of arrival: Ambulatory Limitations: No Limitations - History of Present Illness Initial Comments: Mr. Weathers is a 47-year-old male with known seizure disorder. He is had seizures for over 3 years. He states that he has seizures every day. He had 3 seizures today. He is compliant with medications which include Keppra. He is followed by neurology clinic at [facility]. He had 3 witnessed seizures. Awakened on the ground when urinary incontinence. He denies any trauma. But he felt dizzy after the seizures. MD Complaint: seizure, possible seizure Description of Episode: loss of consciousness, bladder incontinence Witnessed:: No Seizure History: known seizure disorder Place: home - Related Data Previous Rx's Medication Instructions Recorded Last Taken Type Aspirin [Adult Low Dose Aspirin EC] 81 mg PO QDAY #30 tablet. 05/17/17 Unknown Rx Amlodipine Besylate [Norvasc] 5 mg PO DAILY #30 tablet 06/15/17 Unknown Rx Ibuprofen [Motrin] 800 mg PO Q8HR PRN #12 tablet 06/29/17 Unknown Rx Ondansetron [Zofran TAB] 4 mg PO Q8HR PRN #15 tablet 06/29/17 Unknown Rx levETIRAcetam [Keppra TAB] 500 mg PO BID #60 tab 07/13/17 Unknown Rx Allergies Allergy/AdvReac Type Severity Reaction Status Date / Time No Known Allergies Allergy Verified 07/14/17 18:41 ED Review of Systems ROS: Stated complaint: SEIZURE Other details as noted in HPI Comment: All other systems reviewed and negative Constitutional: denies: fever, malaise Cardiovascular: denies: chest pain, palpitations ED Past Medical Hx - Past Medical History Hx Hypertension: Yes Hx Diabetes: Yes Hx Seizures: Yes - Social History Smoking Status: Never Smoker Substance Use Type: None - Medications Home Medications: Home Medications Medication Instructions Recorded Confirmed Last Taken Type Aspirin [Adult Low Dose Aspirin EC] 81 mg PO QDAY #30 tablet. 05/17/17 Unknown Rx Amlodipine Besylate [Norvasc] 5 mg PO DAILY #30 tablet 06/15/17 Unknown Rx Ibuprofen [Motrin] 800 mg PO Q8HR PRN #12 tablet 06/29/17 Unknown Rx Ondansetron [Zofran TAB] 4 mg PO Q8HR PRN #15 tablet 06/29/17 Unknown Rx levETIRAcetam [Keppra TAB] 500 mg PO BID #60 tab 07/13/17 Unknown Rx ED Physical Exam - General Limitations: No Limitations General appearance: alert, in no apparent distress - Head Head exam: Present: atraumatic, normocephalic - Eye Eye exam: Present: normal appearance - ENT ENT exam: Present: mucous membranes moist - Neck Neck exam: Present: normal inspection - Respiratory Respiratory exam: Present: normal lung sounds bilaterally. Absent: respiratory distress, wheezes, rales, rhonchi - Cardiovascular Cardiovascular Exam: Present: regular rate, normal rhythm, normal heart sounds. Absent: systolic murmur, diastolic murmur, rubs, gallop - GI/Abdominal GI/Abdominal exam: Present: soft, normal bowel sounds. Absent: distended, tenderness, guarding, rebound - Rectal Rectal exam: Present: deferred - Extremities Exam Extremities exam: Present: normal inspection - Back Exam Back exam: Present: normal inspection - Neurological Exam Neurological exam: Present: alert, oriented X3, CN II-XII intact, normal gait. Absent: motor sensory deficit - Psychiatric Psychiatric exam: Present: normal affect, normal mood - Skin Skin exam: Present: warm, dry, intact, normal color. Absent: rash ED Course Vital Signs 07/14/17 07/14/17 18:42 21:51 Temperature 98.3 F 98.1 F Pulse Rate 91 H 85 Respiratory 18 18 Rate Blood Pressure 165/101 Blood Pressure 156/99 [Left] O2 Sat by Pulse 100 100 Oximetry ED Medical Decision Making - Medical Decision Making Mr. Weathers has a history of known seizure disorder. No indication of status epilepticus. He is awake and alert. He has not had seizure while in observation here in the ED. He received 1 dose 1 mg IM orazepam for reassurance and comfort. Discharged home in stable condition. Critical care attestation.: If time is entered above; I have spent that time in minutes in the direct care of this critically ill patient, excluding procedure time. ED Disposition Clinical Impression: Seizure Disposition: DC-01 TO HOME OR SELFCARE Is pt being admited?: No Does the pt Need Aspirin: No Condition: Stable Instructions: Epilepsy (ED) Referrals: [facility] [Other] - 3-5 Days Time of Disposition: 22:25
[2017-07-14 23:20] VITALS: BP 138/82
== END 2017-07-14 23:00 | disposition home or self-care (01) ==
LOC: ED 18:00
DX: G40.909 Epilepsy, unspecified, not intractable, without status epilepticus (principal); I10 Essential (primary) hypertension; E11.9 Type 2 diabetes mellitus without complications
CPT/HCPCS: 96372; 99282; J2060

== ENCOUNTER 2017-07-15 14:46 | Emergency (ER) | payer MEDICARE ==
[2017-07-15] MEDS ORDERED: TYLENOL PO ONE (16:34)
--- NOTE | 2017-07-15 16:39 | Emergency Department Report ---
ED General Adult HPI - General Chief complaint: High BP Stated complaint: HIGH BLOOD PRESSURE Time Seen by Provider: 07/15/17 16:20 Source: patient Mode of arrival: Ambulatory Limitations: Other - History of Present Illness Initial comments: Mr. Weathers's 47-year-old male with history of seizure disorder and hypertension. He has diffuse pain. He has mild headache. He has body aches. He states that he is "still catching". He has a follow-up on with his primary physician. He states that he has seizures almost every day. Triage note mentioned elevated blood pressure. This does not appear to be a concern for the patient. He lives in a rooming house. He is in touch with his siter. - Related Data Previous Rx's Medication Instructions Recorded Last Taken Type Aspirin [Adult Low Dose Aspirin EC] 81 mg PO QDAY #30 tablet. 05/17/17 Unknown Rx Amlodipine Besylate [Norvasc] 5 mg PO DAILY #30 tablet 06/15/17 Unknown Rx Ibuprofen [Motrin] 800 mg PO Q8HR PRN #12 tablet 06/29/17 Unknown Rx Ondansetron [Zofran TAB] 4 mg PO Q8HR PRN #15 tablet 06/29/17 Unknown Rx levETIRAcetam [Keppra TAB] 500 mg PO BID #60 tab 07/13/17 Unknown Rx Allergies Allergy/AdvReac Type Severity Reaction Status Date / Time No Known Allergies Allergy Verified 07/14/17 18:41 ED Review of Systems ROS: Stated complaint: HIGH BLOOD PRESSURE Other details as noted in HPI Comment: All other systems reviewed and negative Constitutional: denies: chills Respiratory: denies: cough Cardiovascular: denies: chest pain ED Past Medical Hx - Past Medical History Previous Medical History?: Yes Hx Hypertension: Yes Hx Diabetes: Yes Hx Seizures: Yes - Surgical History Past Surgical History?: No - Social History Smoking Status: Former Smoker Substance Use Type: Prescribed - Medications Home Medications: Home Medications Medication Instructions Recorded Confirmed Last Taken Type Aspirin [Adult Low Dose Aspirin EC] 81 mg PO QDAY #30 tablet. 05/17/17 Unknown Rx Amlodipine Besylate [Norvasc] 5 mg PO DAILY #30 tablet 06/15/17 Unknown Rx Ibuprofen [Motrin] 800 mg PO Q8HR PRN #12 tablet 06/29/17 Unknown Rx Ondansetron [Zofran TAB] 4 mg PO Q8HR PRN #15 tablet 06/29/17 Unknown Rx levETIRAcetam [Keppra TAB] 500 mg PO BID #60 tab 07/13/17 Unknown Rx ED Physical Exam - General Limitations: Other General appearance: alert, in no apparent distress - Head Head exam: Present: atraumatic, normocephalic - Eye Eye exam: Present: normal appearance - ENT ENT exam: Present: mucous membranes moist - Neck Neck exam: Present: normal inspection - Respiratory Respiratory exam: Present: normal lung sounds bilaterally. Absent: respiratory distress, wheezes, rales, rhonchi - Cardiovascular Cardiovascular Exam: Present: regular rate, normal rhythm. Absent: systolic murmur, diastolic murmur, rubs, gallop - GI/Abdominal GI/Abdominal exam: Present: soft, normal bowel sounds. Absent: distended, tenderness, guarding, rebound - Rectal Rectal exam: Present: deferred - Extremities Exam Extremities exam: Present: normal inspection - Back Exam Back exam: Present: normal inspection - Neurological Exam Neurological exam: Present: alert, oriented X3, CN II-XII intact, normal gait. Absent: motor sensory deficit - Psychiatric Psychiatric exam: Present: normal affect, flat affect - Skin Skin exam: Present: warm, dry, intact, normal color. Absent: rash ED Course Vital Signs 07/15/17 14:51 Temperature 99.4 F Pulse Rate 89 Respiratory 18 Rate Blood Pressure 167/91 O2 Sat by Pulse 99 Oximetry ED Medical Decision Making - Medical Decision Making Mr. Weathers presents with diffuse body pain and headache. He states states that he continues to have seizures. I did review previous documentation. This is the patient's seventh visit within the last 2 months. This is his third visit in the last 3 days. He does appear to be a poor historian. It appears to be a cognitive delay. I attempted to call personal intermediate. The relative listed in demographic information. Mr. Weathers does not appear to have an emergent condition at this time. I have not seen seizure while in the ED. I did not see a documentation of seizure activity and his electronic record. When I brought this to his observation, he stated "I do not want you to be mad at me." He arrived to the ED by public bus. He'll be discharged home. Critical care attestation.: If time is entered above; I have spent that time in minutes in the direct care of this critically ill patient, excluding procedure time. ED Disposition Clinical Impression: Total body pain, Seizure disorder Disposition: DC- TO HOME OR SELFCARE Is pt being admited?: No Does the pt Need Aspirin: No Condition: Stable Instructions: Muscle Cramp (ED) Referrals: PRIMARY CARE, [Primary Care Provider] - 3-5 Days Time of Disposition: 16:44
[2017-07-15 17:15] VITALS: BP 147/94
== END 2017-07-15 17:43 | disposition home or self-care (01) ==
LOC: ED 14:46
DX: G40.909 Epilepsy, unspecified, not intractable, without status epilepticus (principal); I10 Essential (primary) hypertension; E11.9 Type 2 diabetes mellitus without complications; Z87.891 Personal history of nicotine dependence
CPT/HCPCS: 99282

== ENCOUNTER 2017-11-02 13:04 | Emergency (ER) | payer MEDICARE ==
[2017-11-02 14:12] LABS: Hematocrit 38.1 % (35.5-45.6); Mean Corpuscular HGB Conc 34 % (32-34); Mean Corpuscular Hemoglobin 34 pg (28-32); Mean Corpuscular Volume 99 fl (84-94); Red Blood Count 3.87 M/mm3 (3.65-5.03); Red Cell Distribution Width 17.4 % (13.2-15.2)
[2017-11-02 14:18] LABS: Platelet Count 106 K/mm3 (140-440)
[2017-11-02 14:25] LABS: BUN/Creatinine Ratio 8; Blood Urea Nitrogen 8 mg/dL (9-20); Calcium 8.7 mg/dL (8.4-10.2); Hemolysis Index 131
[2017-11-02] MEDS ORDERED: KEPPRA 1,000 MG/NS 0.75% 100ML 1,000 MG/100 ML BAG IV ONE (15:16)
[2017-11-02 15:59] LABS: INR 1.05 (0.87-1.13)
[2017-11-02 16:00] LABS: Partial Thromboplastin Time 26.9 Sec. (24.2-36.6)
[2017-11-02 16:05] LABS: Alanine Aminotransferase 7 units/L (7-56); Albumin 3.8 g/dL (3.9-5)
[2017-11-02 16:08] LABS: Bilirubin,Direct < 0.2 mg/dL (0-0.2)
[2017-11-02] MEDS ORDERED: ANTIVERT PO ONE (16:20)
--- NOTE | 2017-11-02 16:26 | Emergency Department Report ---
HPI - General Chief Complaint: Seizure Time Seen by Provider: 11/02/17 16:10 - HPI HPI: Room 4 The patient is a 47-year-old male presenting with a chief complaint of seizure. Patient reportedly had a seizure this morning. The patient states she also had a seizure last night. Patient states she's been compliant with his Keppra 500 mg twice a day. The patient states he is only been on the Keppra for several weeks. Patient now complains of dizziness and muscle soreness Location: [See above] Duration: [See above] Quality: [See above] Severity: [See above] Modifying factors: [see above] Context: [see above] Mode of transportation: [not driving] ED Past Medical Hx - Past Medical History Hx Hypertension: Yes Hx Diabetes: Yes Hx Seizures: Yes - Surgical History Past Surgical History?: No - Family History Family history: no significant - Social History Smoking Status: Former Smoker (none 2 years) Substance Use Type: None (denies illicit drug use) - Medications Home Medications: Home Medications Medication Instructions Recorded Confirmed Last Taken Type Aspirin [Adult Low Dose Aspirin EC] 81 mg PO QDAY #30 tablet. 05/17/17 Unknown Rx Amlodipine Besylate [Norvasc] 5 mg PO DAILY #30 tablet 06/15/17 Unknown Rx Ibuprofen [Motrin] 800 mg PO Q8HR PRN #12 tablet 06/29/17 Unknown Rx Ondansetron [Zofran TAB] 4 mg PO Q8HR PRN #15 tablet 06/29/17 Unknown Rx levETIRAcetam [Keppra TAB] 500 mg PO BID #60 tab 07/13/17 Unknown Rx ED Review of Systems ROS: Stated complaint: SEIZURES/PASS OUT Other details as noted in HPI Constitutional: no symptoms reported Eyes: denies: eye pain ENT: denies: throat pain Respiratory: no symptoms reported Cardiovascular: denies: chest pain Endocrine: no symptoms reported Gastrointestinal: denies: abdominal pain Genitourinary: denies: dysuria Musculoskeletal: myalgia Neurological: other (dizziness) Physical Exam - Physical Exam Vital Signs: Vital Signs 11/02/17 11/02/17 11/02/17 13:28 15:10 15:15 Temperature 98.9 F Pulse Rate 73 80 Respiratory 18 9 L 12 Rate Blood Pressure 181/107 173/94 O2 Sat by Pulse 100 98 Oximetry Physical Exam: GENERAL: The patient is well-developed well-nourished male lying on stretcher not appearing to be in acute distress. [] HEENT: Normocephalic. Atraumatic. Extraocular motions are intact. Patient has moist mucous membranes. NECK: Supple. No meningitic signs are noted. Trachea midline CHEST/LUNGS: Clear to auscultation. There is no respiratory distress noted. HEART/CARDIOVASCULAR: Regular. There is no tachycardia. There is no gallop rub or murmur. ABDOMEN: Abdomen is soft, nontender. Patient has normal bowel sounds. There is no abdominal distention. SKIN: There is no rash. There is no edema. There is no diaphoresis. NEURO: The patient is awake, alert, and oriented. The patient is cooperative. The patient has no focal neurologic deficits. The patient has normal speech. Cranial nerves II through XII grossly intact, no drift MUSCULOSKELETAL: There is no evidence of acute injury. ED Course Vital Signs 11/02/17 11/02/17 11/02/17 13:28 15:10 15:15 Temperature 98.9 F Pulse Rate 73 80 Respiratory 18 9 L 12 Rate Blood Pressure 181/107 173/94 O2 Sat by Pulse 100 98 Oximetry ED Medical Decision Making - Lab Data Result diagrams: 11/02/17 13:48 11/02/17 13:48 Laboratory Results - last 72 hr 11/02/17 11/02/17 11/02/17 13:36 13:48 13:48 WBC 5.4 RBC 3.87 Hgb 13.0 Hct 38.1 MCV 99 H MCH 34 H MCHC 34 RDW 17.4 H Plt Count 106 L PT INR APTT Sodium 139 Potassium 4.3 Chloride 98.8 Carbon Dioxide 29 Anion Gap 16 BUN 8 L Creatinine 1.0 Estimated GFR > 60 BUN/Creatinine Ratio 8 Glucose 76 POC Glucose 67 L Calcium 8.7 Magnesium Total Bilirubin Direct Bilirubin Indirect Bilirubin AST ALT Alkaline Phosphatase Total Protein Albumin Albumin/Globulin Ratio Blood Type Antibody Screen 11/02/17 11/02/17 11/02/17 15:37 15:37 15:37 WBC RBC Hgb Hct MCV MCH MCHC RDW Plt Count PT 14.2 INR 1.05 APTT 26.9 Sodium Potassium Chloride Carbon Dioxide Anion Gap BUN Creatinine Estimated GFR BUN/Creatinine Ratio Glucose POC Glucose Calcium Magnesium 2.10 Total Bilirubin 0.30 Direct Bilirubin < 0.2 Indirect Bilirubin 0.1 AST 18 ALT 7 Alkaline Phosphatase 88 Total Protein 7.7 Albumin 3.8 L Albumin/Globulin Ratio 1.0 Blood Type O POSITIVE Antibody Screen Negative - Radiology Data Radiology results: report reviewed (CT head), image reviewed (CT head) [facility] [address] [place] [address] Cat Scan Report Signed Patient: CARLOS LE MR#: [id number] : 1970 Acct:[id number] Age/Sex: 47 / M ADM Date: 11/02/17 Loc: ED Attending Dr: Ordering Physician: ZAINAB NICK MD Date of Service: 11/02/17 Procedure(s): CT head/brain wo con Accession Number(s): [id number] cc: ZAINAB NICK MD FINAL REPORT EXAM: CT HEAD/BRAIN WO CON HISTORY: seizure, dizziness TECHNIQUE: 2.5 millimeter axial images from the skullbase to the vertex. Comparison: Head CT dated May 17, 2017 FINDINGS: There is no evidence of an acute intracranial process, intracranial hemorrhage or mass effect. There is mild prominence of the lateral ventricles with normal size of the 3rd and 4th ventricles and temporal horns. This may be constitutional for this patient. This is not significantly changed in the interval. The visualized portions of the orbits, paranasal and mastoid sinuses are unremarkable. There is no evidence of fracture. IMPRESSION: 1. No evidence of an acute intracranial process, intracranial hemorrhage or mass effect. No significant change since previous head CT dated May 17, 2017. If there is a clinical suspicion of an acute intracranial process and if further imaging is required, MRI may be helpful. Transcribed By: ED Dictated By: ABDIEL RESENDIZ MD Electronically Authenticated By: ABDIEL RESENDIZ MD Signed Date/Time: 11/02/171843 DD/ 43 TD/TT: 11/02/171843 - Differential Diagnosis seizure Critical care attestation.: If time is entered above; I have spent that time in minutes in the direct care of this critically ill patient, excluding procedure time. ED Disposition Clinical Impression: Seizure, Thrombocytopenia Disposition: - TO HOME OR SELFCARE Is pt being admited?: No Does the pt Need Aspirin: No Condition: Stable Instructions: Epilepsy (ED) Additional Instructions: Return to the emergency department immediately should you develop worsening symptoms, fever, inability to tolerate food or liquid or any other concerns. Referrals: [facility] [Outside] - 3-5 Days TRICIA BERMUDEZ MD [Staff Physician] - 3-5 Days (Dr. Bermudez is a neurologist. Please follow-up with him or your [place] neurologist for further evaluation and management of your seizure medication) Time of Disposition: 19:01
--- NOTE | 2017-11-02 18:45 | Cat Scan Report ---
FINAL REPORT EXAM: CT HEAD/BRAIN WO CON HISTORY: seizure, dizziness TECHNIQUE: 2.5 millimeter axial images from the skullbase to the vertex. Comparison: Head CT dated May 17, 2017 FINDINGS: There is no evidence of an acute intracranial process, intracranial hemorrhage or mass effect. There is mild prominence of the lateral ventricles with normal size of the 3rd and 4th ventricles and temporal horns. This may be constitutional for this patient. This is not significantly changed in the interval. The visualized portions of the orbits, paranasal and mastoid sinuses are unremarkable. There is no evidence of fracture. IMPRESSION: 1. No evidence of an acute intracranial process, intracranial hemorrhage or mass effect. No significant change since previous head CT dated May 17, 2017. If there is a clinical suspicion of an acute intracranial process and if further imaging is required, MRI may be helpful.
[2017-11-02 19:01] VITALS: BP 154/87
== END 2017-11-02 19:27 | disposition home or self-care (01) ==
LOC: ED 13:04
DX: R56.9 Unspecified convulsions (principal); D69.6 Thrombocytopenia, unspecified; I10 Essential (primary) hypertension; E11.9 Type 2 diabetes mellitus without complications; Z87.891 Personal history of nicotine dependence; Z79.82 Long term (current) use of aspirin
CPT/HCPCS: 36415; 70450; 80048; 80074; 82962; 83735; 85027; 85610; 85730; 86850; 86900; 86901; 93005; 93010; 96365; 99284; J1953